=== PATIENT | male | born 1990 | race African-American/Black ===

== ENCOUNTER 2020-02-10 19:32 | Emergency (ER) | payer OTHER ==
[~2020-02-10] VITALS: Ht 167.6 cm; Wt 60.0 kg
[2020-02-10 19:49] VITALS: BP 165/108
[2020-02-10] MEDS ORDERED: NAPROXEN 375MG TABLET PO ONE (20:45)
== END 2020-02-10 21:32 | disposition home or self-care (01) ==
LOC: ER 19:32
DX: M54.5 Low back pain (principal); V49.49XA Driver injured in collision with other motor vehicles in traffic accident, initial encounter; Y93.89 Activity, other specified; Y92.89 Other specified places as the place of occurrence of the external cause; Y99.8 Other external cause status
CPT/HCPCS: 99282